=== PATIENT | male | born 1940 | race Caucasian/White ===

== ENCOUNTER 2020-07-28 07:25 | Day surgery (SDC) | payer OTHER ==
[2020-07-22 11:52] VITALS: BMI 31.1
[2020-07-28] MEDS: CIPROFLOXACIN 0.3% EYE DROPS 5 ML BOTTLE ONE ×3 (08:00→08:10)
[2020-07-28] MEDS: CYCLOPENTOLATE 2% OPHTH SOLN 2 ML BOTTLE ONE ×3 (08:00→08:10)
[2020-07-28] MEDS: TROPICAMIDE 1% OPHTH SOLN 15 ML BOTTLE ONE ×3 (08:00→08:10)
[2020-07-28] MEDS: PHENYLEPHRINE 2.5% OPHTH SOLN 15 ML BOTTLE ONE ×3 (08:00→08:10)
[2020-07-28] MEDS ORDERED: BSS (NA/CA/MG/K) BALANCED SALT SOLUTION OPHTH SOLN 15 ML BOTTLE ONE (09:53)
[2020-07-28] MEDS ORDERED: LIDOCAINE 1% P/F 10 MG/ML VIAL ONE (09:53)
[2020-07-28] MEDS ORDERED: CARBACHOL 0.01% INTRA-OCULAR 1.5 ML VIAL ONE (09:53)
[2020-07-28] MEDS ORDERED: TETRACAINE 0.5% OPHTH SOLN 2 ML BOTTLE ONE (09:53)
[2020-07-28] MEDS ORDERED: NEO/POLYMYX B SULF/DEXAMETH OPHTHALMIC 5ML BOTTLE ONE (09:53)
[2020-07-28] MEDS ORDERED: BUPIVACAINE HCL/PF 0.25% (2.5MG/ML) 10 ML VIAL ONE (10:08)
[2020-07-28] MEDS ORDERED: LIDOCAINE HCL 1%, 10 MG/ML (20ML VIAL) ONE (10:08)
[2020-07-28] MEDS ORDERED: LIDOCAINE HCL 2% (20ML MULTI-DOSE VIAL) ONE (10:08)
[2020-07-28 11:23] VITALS: BP 161/84; PULSE 88; TEMP 98.4
== END 2020-07-28 11:20 | disposition home or self-care (01) ==
LOC: FASU 07:25
PROVIDERS: ATTEND Ophthalmology
PROC: 08RK3JZ Replacement of Left Lens with Synthetic Substitute, Percutaneous Approach (ICD-10-PCS; principal; 2020-07-28 10:21)
DX: H26.8 Other specified cataract (principal); I10 Essential (primary) hypertension; E11.9 Type 2 diabetes mellitus without complications; Z79.84 Long term (current) use of oral hypoglycemic drugs

== ENCOUNTER 2020-08-05 06:54 | Day surgery (SDC) | payer OTHER ==
[2020-08-02 17:43] VITALS: BMI 31.1
[2020-08-05] MEDS ORDERED: PROPOFOL 20 ML ONE (09:20)
[2020-08-05] MEDS ORDERED: MIDAZOLAM HCL 2 MG/2 ML SINGLE DOSE VIAL ONE (09:20)
[2020-08-05] MEDS ORDERED: BUPIVACAINE HCL/PF 0.5% (5 MG/ML) 30 ML VIAL IJ ONE (10:02)
[2020-08-05] MEDS ORDERED: ePHEDrine SULFATE 50 MG/1 ML AMPULE ONE (11:25)
[2020-08-05] MEDS ORDERED: oxyCODONE HCL 5 MG TABLET PO PRN (13:27)
[2020-08-05] MEDS ORDERED: ONDANSETRON 4 MG/2 ML VIAL IVPUSH PRN (13:27)
[2020-08-05] MEDS ORDERED: LACTATED RINGERS SOLUTION 1,000 ML IV SCH (13:30)
[2020-08-05 15:51] VITALS: TEMP 97.8
[2020-08-05 16:00] VITALS: BP 132/67; PULSE 86
== END 2020-08-05 15:15 | disposition home or self-care (01) ==
LOC: FASU 06:54
PROVIDERS: ATTEND Orthopaedic Surgery Sports Medicine
PROC: 0LM24ZZ Reattachment of Left Shoulder Tendon, Percutaneous Endoscopic Approach (ICD-10-PCS; 2020-08-05)
PROC: 0RHK44Z Insertion of Internal Fixation Device into Left Shoulder Joint, Percutaneous Endoscopic Approach (ICD-10-PCS; 2020-08-05)
PROC: 0RNK4ZZ Release Left Shoulder Joint, Percutaneous Endoscopic Approach (ICD-10-PCS; 2020-08-05)
PROC: 0PSD04Z Reposition Left Humeral Head with Internal Fixation Device, Open Approach (ICD-10-PCS; principal; 2020-08-05 11:27)
DX: S42.252A Displaced fracture of greater tuberosity of left humerus, initial encounter for closed fracture (principal); M75.122 Complete rotator cuff tear or rupture of left shoulder, not specified as traumatic; M75.42 Impingement syndrome of left shoulder; X58.XXXA Exposure to other specified factors, initial encounter; Y93.9 Activity, unspecified; Y92.9 Unspecified place or not applicable
CPT/HCPCS: 23630; 29826; 29827; C1776; 94760